=== PATIENT | male | born 1985 | race Caucasian/White ===

== ENCOUNTER → 2024-07-08 | Outpatient (CLI) | payer BC ==
--- NOTE | 2024-07-08 08:52 | FL ---
EXAMINATION TYPE: FL sniff test without CXR DATE OF EXAM: 07/08/2024 COMPARISON: NONE HISTORY: Abnormal CT scan demonstrated elevating the left hemidiaphragm on outside CT. TECHNIQUE: Fluoroscopy. FINDINGS: There is elevation of the left hemidiaphragm with minimal to no significant movement upon us sniff te st examination. Correlate for phrenic nerve palsy. There also is reduced movement of the right hemidiaphragm. This should be correlated clinically as we ll. A total of 40 seconds of fluoroscopic time was utilized during the procedure and 1 spot images wa s acquired. Total dose area product (DAP) in uGy*m?, mGy*cm? (or similar): Provided. IMPRESSION: 1. Elevated left hemidiaphragm with no significant movement upon sniff test.. 2. There is movement upon sniff test of the right hemidiaphragm but there appears to be mildly reduce d motion of the right hemidiaphragm. [facility], , 07/08/2024 8:50 AM
== END | disposition home or self-care (01) ==
LOC: RADFLMAIN 07:36
PROVIDERS: ATTEND Internal Medicine Critical Care Medicine
DX: J98.6 Disorders of diaphragm (principal)
CPT/HCPCS: 76000

== ENCOUNTER → 2024-07-15 | Outpatient (CLI) | payer BC ==
--- NOTE | 2024-07-15 21:43 | MR ---
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 TECHNIQUE: Multi planar, multi sequence imaging was performed utilizing: T1-weighted, T2-weighted, an d turbo inversion recovery imaging of the cervical spine. IV Contrast: 13 cc Gadavist (none if empty) FINDINGS: Alignment: The cervical vertebral bodies have preserved heights. Alignment is within normal limits gi dennis patient positioning. Bones: Bone signal is within normal limits. No abnormal bone marrow edema on inversion recovery seque nces. Cord: The spinal cord is unremarkable with regards to their signal intensity and morphology. Discs: Intervertebral disc signal is maintained. C2-C3: No significant disc pathology. The spinal canal is patent. No neural foraminal stenosis. C3-C4: No significant disc pathology. The spinal canal is patent. No neural foraminal stenosis. C4-C5: No significant disc pathology. The spinal canal is patent. No neural foraminal stenosis. C5-C6: No significant disc pathology. The spinal canal is patent. No neural foraminal stenosis. C6-C7: A eccentric left disc protrusion which impresses upon the spinal cord. Spinal cord signal is maintained. No neural foraminal stenosis. C7-T1: No significant disc pathology. The spinal canal is patent. No neural foraminal stenosis. Other: None. IMPRESSION: 1. Eccentric left central protrusion which displaces the spinal cord at the level C6-C7. Otherwise, N o evidence for disc herniation or significant spinal canal stenosis. 2. Mild disc degeneration with associated osteoarthritic changes. [facility], Workstation: [id number], 07/15/2024 9:41 PM
== END | disposition home or self-care (01) ==
LOC: RADMRIMAIN 19:25
PROVIDERS: ATTEND Internal Medicine Critical Care Medicine
DX: J98.6 Disorders of diaphragm
CPT/HCPCS: 72156

== ENCOUNTER 2024-07-30 07:02 | Outpatient (CLI) | payer BC ==
--- NOTE | 2024-08-07 21:30 | P.PCN ---
Date of Procedure: 07/30/24 Operative Findings: History This is a 38-year-old male patient suspected to have obstructive sleep apnea. T he patient is known to have diaphragmatic paralysis. He has gained approximately 50 weight over the past few years. He does have exertional dyspnea which is essentially chronic. His baseline FVC is in order of 60% of predicted. He also has scoliosis of the lumbar spine. Pertinent physical findings The patient has a weight of 300 pounds with a body mass index of 38.5 Technical description The patient was studied using a standard complex polysomnography protocol that included recording of the Lead II EKG, Central, occipital and frontal EEG, right and left outer canthus EOG, submental EMG, right and left anterior tibialis EMG, respiratory airflow by thermocouple and or pressure/flow transducer, respiratory efforts by abdominal and thoracic PVDF belts, oxygen saturation by cable oximetr y. Position by observation synchronized the PSG. Equipment used: Double Fusion. Sleep characteristics The total recording duration was 431.0 minutes. Total sleep time was 348.0 minutes. The overall sleep efficiency was 80.7%. The wake after sleep onset time was 32.5 minutes. The latency to sleep onset was 25.5 minutes and the latest REM sleep was 80.0 minutes. The sleep architecture was categorized by 10.9% stage I, 62.8% stage II, 8.6% stage III, 17.7% REM sleep. The total arousal index was 32.8 Respiratory analysis Sleep study showed a total of 236 obstructive events of which 160 were obstructive apneas, 10 mixed apneas and 57 obstructive hypopneas. The resulting AHI was 39.8 consistent with severe obstructive sleep apnea. Oxygenation analysis The baseline pulse ox while awake was 95%. Lowest oxygen saturation was 73% and the patient spent approximately 23 minutes of sleep time below pulse ox of 89%. Arousal index The patient had total of 190 arousals with an index of 32.8. 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 In addition to his chronic restrictive lung disease related to diaphragmatic paralysis, the patient does have obstructive sleep apnea with an AHI being high at 39.8. He did encounter also significant nocturnal oxygen desaturations. Based on all this, the patient would benefit from CPAP therapy and the patient plans to go into the sleep center to undergo a CPAP/BiPAP titration. Encourage weight loss. Workup of diaphragmatic paralysis still in progress. Will follow.
== END 2024-07-30 16:45 | disposition home or self-care (01) ==
LOC: 3 N SLEEP 07:02
PROVIDERS: ATTEND Internal Medicine Critical Care Medicine
DX: G47.33 Obstructive sleep apnea (adult) (pediatric) (principal); E66.9 Obesity, unspecified; J98.4 Other disorders of lung; Z68.39 Body mass index [BMI] 39.0-39.9, adult
CPT/HCPCS: 95810